=== PATIENT | female | born 1950 | race American Indian/Alaskan Native ===

== ENCOUNTER 2017-03-20 08:06 | Outpatient (CLI) | payer MEDICARE ==
--- NOTE | 2017-03-20 08:55 | XRay Report ---
LUMBOSACRAL SPINE, 3 VIEWS: History: Low back pain, myelopathy Findings: There is normal bone mineralization. Straightening of the normal lordosis is evident. 5 mm anterolisthesis of L4 the respect to L5 is suspected to be secondary to facet arthropathy. No compression deformity or bone lesion identified. Moderate multilevel degenerative disc disease is identified. L4-5 and L5-S1 are most affected. There is moderate to severe hypertrophic facet arthropathy throughout the lumbar spine. L3-4 and L4-5 appear to be the most affected levels. Moderate osteoarthritic changes of both SI joints. Impression: Moderate to severe degenerative findings as described. No acute process is noted. If further evaluation is needed, MRI lumbar spine without contrast is recommended.
--- NOTE | 2017-03-20 08:56 | XRay Report ---
RIGHT SHOULDER, 3 VIEWS: HISTORY: right shoulder pain, question rotator cuff tear. Normal bone mineralization. Mild to moderate osteoarthritic changes are identified. No evidence for fracture, dislocation, ligamentous injury or bone lesion. Alignment at the glenohumeral joint is anatomic. No suggestion of chronic, complete rotator cuff tear. IMPRESSION: Osteoarthritis.
== END 2017-03-20 08:07 | disposition home or self-care (01) ==
LOC: XRAY 08:06
PROVIDERS: ATTEND Pain Medicine Interventional Pain Medicine
DX: M47.817 Spondylosis without myelopathy or radiculopathy, lumbosacral region (principal); M19.011 Primary osteoarthritis, right shoulder; M51.37 Other intervertebral disc degeneration, lumbosacral region
CPT/HCPCS: 72100

== ENCOUNTER 2019-02-24 07:48 | Outpatient (CLI) | payer MEDICARE ==
--- NOTE | 2019-02-24 08:53 | Fluoroscopy Report ---
BARIUM SWALLOW Indication: R13.10 DYSHAGIA. Technique: Single contrast barium technique utilized to evaluate the esophagus. FINDINGS: To begin the exam, swallowing was evaluated in the lateral position under direct fluorosco py. Swallowing was normal. No mucosal irregularity, mass, mass effect, or critical stenosis. Occasional tertiary contractions were witnessed in the distal esophagus consistent with mild esophageal spasm. No evidence for hiatal hernia or gastroesophageal reflux during this exam. The patient was able to ingest and pass a barium tablet without difficulty. IMPRESSION: Mild esophageal dysmotility was witnessed as described. No mucosal lesion, stenosis or r eflux was witnessed during this exam. Fluoroscopic time: 1.3 minutes Number of fluoroscopic images: 31 Signer Name: Henri Kenney Jr, MD Signed: 02/24/2019 8:49 AM Workstation Name: [id number]
== END 2019-02-24 07:49 | disposition home or self-care (01) ==
LOC: FLUORO 07:48
PROVIDERS: ATTEND Internal Medicine Gastroenterology
DX: R13.10 Dysphagia, unspecified (principal); I10 Essential (primary) hypertension; M19.90 Unspecified osteoarthritis, unspecified site; Z90.710 Acquired absence of both cervix and uterus
CPT/HCPCS: 74220